=== PATIENT | male | born 1945 | race Caucasian/White ===

== ENCOUNTER 2020-12-28 15:34 | Outpatient (CLI) | payer MEDICARE, MEDICAID ==
[2020-12-30 12:16] LABS: Follow-up Chemistry Comp? YES; Follow-up Result - Chemistry REPORT FAXED
== END 2020-12-28 15:35 | disposition home or self-care (01) ==
LOC: NAV LABSP 15:34
PROVIDERS: ATTEND Family Medicine
DX: E11.22 Type 2 diabetes mellitus with diabetic chronic kidney disease (principal); N18.9 Chronic kidney disease, unspecified
CPT/HCPCS: 83036